=== PATIENT | female | born 1975 | race Caucasian/White ===

== ENCOUNTER 2018-07-15 07:05 | Emergency (ER) | payer MEDICAID ==
[~2018-07-15] VITALS: Ht 162.6 cm; Wt 77.6 kg
--- NOTE | 2018-07-15 07:05 | NUR ---
PT BIBA BLS TO BED 9
[2018-07-15 07:12] VITALS: BP 113/67
--- NOTE | 2018-07-15 07:24 | NUR ---
Patient being evaluated by physician at bedside.
[2018-07-15] MEDS ORDERED: ONDANSETRON 4 MG ODT PO ONE (07:30)
[2018-07-15] MEDS ORDERED: KETOROLAC 60 MG/2 ML VIAL IM ONE (07:30)
--- NOTE | 2018-07-15 07:50 | NUR ---
PATIENT PRESENTS TO ED WITH c/o generalized abdominal pain, loose stools x 2 days adds frequency, urgency, and burning discomfort upon voiding also admits to suicidal thoughts, depression last night admits she does not want to harm herself, it was just a thought --as per pt does not have homicidal / suicidal ideations or visual/auditory hallucinations at this time. MD notified SKIN IS PINK/WARM/DRY; AAOX4 WITH EVEN AND STEADY GAIT; LUNGS CLEAR BL; HR EVEN AND REGULAR; PT DENIES ANY FEVER, CP, SOB, OR COUGH AT THIS TIME; PATIENT STATES PAIN OF 8/10 AT THIS TIME; VSS; PATIENT POSITIONED FOR COMFORT; HOB ELEVATED; BEDRAILS UP X2; BED DOWN. ER MD MADE AWARE OF PT STATUS.
--- NOTE | 2018-07-15 08:36 | NUR ---
laying on left side with ou closed, no grimace no moan---upon taking vitals pt requested for blanket; provided denies nausea---continues to wait for dispo
[2018-07-15 09:17] VITALS: BP 121/63
--- NOTE | 2018-07-15 09:18 | NUR ---
Patient discharged with v/s stable. Written and verbal after care instructions given and explained. Patient alert, oriented and verbalized understanding of instructions. Ambulatory with steady gait. All questions addressed prior to discharge. ID band removed. Patient advised to follow up with PMD. Rx of ZOFRAN, CIPRO, MOTRIN given. Patient educated on indication of medication including possible reaction and side effects. Opportunity to ask questions provided and answered.
== END 2018-07-15 09:18 | disposition home or self-care (01) ==
LOC: MED 07:05
DX: N39.0 Urinary tract infection, site not specified (principal); R11.0 Nausea; Z90.710 Acquired absence of both cervix and uterus
CPT/HCPCS: 81002; 81025; 96372; 99283; J1885; Q0162

== ENCOUNTER 2022-01-17 17:11 | Emergency (ER) | payer OTHER, MEDICAID ==
[~2022-01-17] VITALS: Ht 162.6 cm; Wt 77.1 kg
[2022-01-17 17:37] VITALS: BP 103/58
--- NOTE | 2022-01-17 17:40 | NUR ---
PT CALLED IN LOBBY NO ANSWER, ERMD MADE AWARE.
--- NOTE | 2022-01-17 17:51 | NUR ---
ENDER ALS TAKEN TO BED 5
--- NOTE | 2022-01-17 18:20 | NUR ---
46 Y/O F BIBA WITH C/O GENERAL WEAKNESS AFTER BEING OUT IN THE POOL UNDER THE SUN TODAY. PER EMS PATIENTS BP ON SCENE WAS 86/50. PATIENT RECEIVED 500 ML NS EN ROUTE TO ED, BP UPON ARRIVAL 103/58. PATIENT DENIES DIZZINESS, VISION CHANGES, HEADACHE UPON ARRIVAL. PMH: SEIZURE, ASTHMA, HYSTERECTOMY, R TOE SURGERY OCTOBER 2021 ALLERGIES: BENADRYL
[2022-01-17] MEDS ORDERED: NACL 0.9% 1,000 ML IV ONE (18:35)
--- NOTE | 2022-01-17 18:40 | NUR ---
LAB AT BEDSIDE.
[2022-01-17 19:04] LABS: BASOPHILS # (AUTO) 0.1 K/uL (0.00-0.22); BASOPHILS % (AUTO) 0.5 % (0.0-2.0); EOSINOPHILS % (AUTO) 0.4 % (0.0-4.0); HEMOGLOBIN 15.2 g/dL (12.0-16.0); LYMPHOCYTES # (AUTO) 1.3 K/uL (2.5-16.5); LYMPHOCYTES % (AUTO) 11.5 % (20.5-51.1); MEAN CORPUSCULAR HEMOGLOBIN 31 pg (27-31); MEAN CORPUSCULAR HGB CONC 33 g/dL (33-37); MEAN CORPUSCULAR VOLUME 93.7 fL (80-94); MONOCYTES # (AUTO) 0.5 K/uL (0.8-1.0); MONOCYTES % (AUTO) 4.3 % (1.7-9.3); NEUTROPHILS # (AUTO) 9.7 K/uL (1.8-7.7); NEUTROPHILS % (AUTO) 83.3 % (42.2-75.2); PLATELET COUNT (AUTO) 249 K/uL (140-450); RED BLOOD CELL COUNT(AUTO) 4.91 MIL/uL (4.20-5.40); RED CELL DISTRIBUTION WIDTH 14.6 % (11.6-13.7); WHITE BLOOD COUNT (AUTO) 11.6 K/uL (4.8-10.8)
--- NOTE | 2022-01-17 19:11 | NUR ---
46/F BIBA WITH C/O GENERAL WEAKNESS AFTER BEING OUT IN THE SUN TODAY. PER EMS PATIENTS BP ON SCENE WAS 86/50. PATIENT RECEIVED 500 ML NS EN ROUTE TO ED, BP UPON ARRIVAL 103/58. PATIENT DENIES DIZZINESS, VISION CHANGES, HEADACHE UPON ARRIVAL.
--- NOTE | 2022-01-17 19:19 | NUR ---
REPORT GIVEN TO JOSUE SAHA.
[2022-01-17 19:24] LABS: ALBUMIN 3.7 g/dL (3.4-5.0); ANION GAP 14.7 (8-16); ASPARTATE AMINOTRANSFERASE 13 U/L (15-37); CARBON DIOXIDE 26.3 mmol/L (21-32); CHLORIDE 108 mmol/L (98-107); CREATININE 0.9 mg/dL (0.6-1.3); GFR ARICAN-AMERICAN 86 mL/min (>90); GLUCOSE 93 mg/dL (74-106); SODIUM SERUM 145 mmol/L (136-145); TOTAL BILIRUBIN 0.6 mg/dL (0.0-1.0); UREA NITROGEN, BLOOD 5 mg/dL (7-18)
--- NOTE | 2022-01-17 19:36 | NUR ---
PATIENT SITTING IN BED. BED LOW AND LOCKED. ALEK SIDE RAILS FOR SAFETY. ALL NEEDS MET.
--- NOTE | 2022-01-17 21:30 | NUR ---
PATIENT AMBULATED TO THE RR
--- NOTE | 2022-01-17 21:32 | NUR ---
IV removed, catheter intact and site benign. Applied folded 4x4 gauze and tape to stop bleeding.
[2022-01-17 21:34] VITALS: BP 125/81
--- NOTE | 2022-01-17 21:34 | NUR ---
Patient discharged with v/s stable. Written and verbal after care instructions given and explained. Patient verbalized understanding. Ambulatory with steady gait. All questions addressed prior to discharge. Advised to follow up with PMD.
--- NOTE | 2022-01-17 21:34 | NUR ---
Chart checked and completed.
== END 2022-01-17 21:34 | disposition home or self-care (01) ==
LOC: MED 17:11
DX: R55 Syncope and collapse (principal); Z88.8 Allergy status to other drugs, medicaments and biological substances; Z90.710 Acquired absence of both cervix and uterus; Z98.890 Other specified postprocedural states; X30.XXXA Exposure to excessive natural heat, initial encounter; Y93.89 Activity, other specified; Y92.89 Other specified places as the place of occurrence of the external cause; Y99.8 Other external cause status
CPT/HCPCS: 36415; 80053; 84484; 85025; 93005; 96360; 99284; J7030